=== PATIENT | male | born 1965 | race Caucasian/White ===

== ENCOUNTER 2021-12-26 19:30 | Emergency (ER) | payer SELFPAY ==
[~2021-12-26] VITALS: Ht 182.9 cm; Wt 77.2 kg
--- NOTE | 2021-12-26 20:13 | ED.ADGEN ---
General Adult EDM: Chief Complaint: SUICDAL IDEATION HPI: HPI: Patient is a 56 year old male coming in for suicidal ideation. Patient states that he wanted to cut his knife with a machete but it was taken away by the po lice. History provided by patient is very disorganized. Patient does state he has a history of schizophrenia but has not been taking medications. Patient is currently traveling to or from [place] but is unclear. Patient does admit to doing drugs yesterday. Patient patient had some "bad dope" and was told that it was going to kill him Review of Systems: Review of Systems: All other systems within normal limits except for as noted in the HPI Current Medications: Current Medications Medications (Trade) Dose Ordered Sig/Js Start Time Stop Time Status Last Admin Dose Admin Diphenhydramine HCl (Benadryl) 25 mg 1X ONCE 12/26/21 20:30 12/26/21 20:42 DC 12/26/21 20:30 25 MG Haloperidol Lactate (Haldol Inj) 5 mg 1X ONCE 12/26/21 20:30 12/26/21 20:42 DC 12/26/21 20:30 5 MG Lorazepam (Ativan Inj) 2 mg 1X ONCE 12/26/21 23:00 12/26/21 23:01 DC Sodium Chloride 1,000 ml @ 1,000 mls/hr 1X ONCE 12/27/21 03:30 12/27/21 04:29 DC 12/27/21 03:30 1,000 MLS/HR Allergies: Allergies: Allergies Coded Allergies Type Severity Reaction Last Updated Verified No Known Drug Allergies 12/26/21 No Physical Exam: PE: Constitutional: Well developed, well nourished, no acute distress, non-toxic appearance. [] HENT: Normocephalic, atraumatic, bilateral external ears normal, nose normal. [] Eyes: PERRLA, conjunctiva normal, no discharge. [] Neck: No rigidity, supple, no stridor. [] Cardiovascular: Regular rate and rhythm, brisk cap refill [] Lungs & Thorax: Non labored symmetric respirations, no tachypnea or respiratory distress [] Abdomen: Soft, nondistended. Skin: Warm, dry, no erythema, no rash. [] Back: Unremarkable Extremities: No deformities, range of motion grossly intact, no lower extremity edema [] Neurologic: Alert and oriented X 3, no focal deficits noted. [] Psychologic: Disorganized thinking and speech, suicidal ideations Current Patient Data: Labs: Laboratory Tests Test 12/26/21 20:14 12/26/21 23:40 12/27/21 05:00 12/27/21 12:05 White Blood Count 10.3 x10^3/uL (4.0-11.0) Red Blood Count 4.16 x10^6/uL (4.30-5.70) L Hemoglobin 12.4 g/dL (13.0-17.5) L Hematocrit 36.9 % (39.0-53.0) L Mean Corpuscular Volume 89 fL (79-100) Mean Corpuscular Hemoglobin 30 pg (25-35) Mean Corpuscular Hemoglobin Concent 34 g/dL (31-37) Red Cell Distribution Width 13.4 % (11.5-14.5) Platelet Count 247 x10^3/uL (140-400) Neutrophils (%) (Auto) 80 % (31-73) H Lymphocytes (%) (Auto) 14 % (24-48) L Monocytes (%) (Auto) 6 % (0-9) Eosinophils (%) (Auto) 0 % (0-3) Basophils (%) (Auto) 1 % (0-3) Neutrophils # (Auto) 8.2 x10^3/uL (1.8-7.7) H Lymphocytes # (Auto) 1.4 x10^3/uL (1.0-4.8) Monocytes # (Auto) 0.6 x10^3/uL (0.0-1.1) Eosinophils # (Auto) 0.0 x10^3/uL (0.0-0.7) Basophils # (Auto) 0.1 x10^3/uL (0.0-0.2) Sodium Level 138 mmol/L (136-145) Potassium Level 3.7 mmol/L (3.5-5.1) Chloride Level 102 mmol/L (98-107) Carbon Dioxide Level 24 mmol/L (21-32) Anion Gap 12 (6-14) Blood Urea Nitrogen 19 mg/dL (8-26) Creatinine 0.9 mg/dL (0.7-1.3) Estimated GFR (Cockcroft-Gault) 86.7 BUN/Creatinine Ratio 21 (6-20) H Glucose Level 91 mg/dL (70-99) Calcium Level 8.7 mg/dL (8.5-10.1) Phosphorus Level 3.6 mg/dL (2.6-4.7) Magnesium Level 2.1 mg/dL (1.8-2.4) Total Bilirubin 1.0 mg/dL (0.2-1.0) Aspartate Amino Transferase (AST) 43 U/L (15-37) H Alanine Aminotransferase (ALT) 43 U/L (16-63) Alkaline Phosphatase 82 U/L (46-116) Total Protein 7.4 g/dL (6.4-8.2) Albumin 3.9 g/dL (3.4-5.0) Albumin/Globulin Ratio 1.1 (1.0-1.7) Salicylates Level 2.3 mg/dL (2.8-20.0) L Salicylate Last Dose Date Salicylate Last Dose Time Acetaminophen Level < 2 mcg/ml (10-30) L Acetaminophen Last Dose Date Acetaminophen Last Dose Time Ethyl Alcohol Level < 10 mg/dL (0-10) SARS-CoV-2 (PCR) Not detected (NOT DETECTD) Not detected (NOT DETECTD) Influenza Type A Antigen Negative (NEGATIVE) Influenza Type B Antigen Negative (NEGATIVE) SARS-CoV-2 Antigen (Rapid) Negative (NEGATIVE) Urine Collection Type Unknown Urine Color [place] Urine Clarity Clear Urine pH 6.0 (<5.0-8.0) Urine Specific [place] 1.025 (1.000-1.030) Urine Protein Negative mg/dL (NEG-TRACE) Urine Glucose (UA) Negative mg/dL (NEG) Urine Ketones (Stick) 40 mg/dL (NEG) Urine Blood Negative (NEG) Urine Nitrite Negative (NEG) Urine Bilirubin Small (NEG) Urine Urobilinogen Dipstick 1.0 mg/dL (0.2 mg/dL) Urine Leukocyte Esterase Negative (NEG) Urine RBC 0 /HPF (0-2) Urine WBC Rare /HPF (0-4) Urine Squamous Epithelial Cells Few /LPF Urine Bacteria 0 /HPF (0-FEW) Urine Hyaline Casts Occasional /HPF Urine Mucus Marked /LPF Urine Opiates Screen Neg (NEG) Urine Methadone Screen Neg (NEG) Urine Barbiturates Neg (NEG) Urine Phencyclidine Screen Neg (NEG) Urine Amphetamine/Methamphetamine Pos (NEG) Urine Benzodiazepines Screen Neg (NEG) Urine Cocaine Screen Neg (NEG) Urine Cannabinoids Screen Pos (NEG) Urine Ethyl Alcohol Neg (NEG) Laboratory Tests 12/26/21 20:14 Laboratory Tests 12/26/21 20:14 Vital Signs: Vital Signs Date Time Temp Pulse Resp B/P (MAP) Pulse Ox O2 Delivery O2 Flow Rate FiO2 12/28/21 06:23 97.7 60 14 120/55 (76) 99 Room Air 97.7 EKG: EKG: [] Heart Score: C/O Chest Pain: No Risk Factors: Risk Factors: DM, Current or recent (<one month) smoker, HTN, HLP, family history of CAD, obesity. Risk Scores: Score 0 - 3: 2.5% MACE over next 6 weeks - Discharge Home Score 4 - 6: 20.3% MACE over next 6 weeks - Admit for Clinical Observation Score 7 - 10: 72.7% MACE over next 6 weeks - Early Invasive Strategies Radiology/Procedures: Radiology/Procedures: [] Course & Med Decision Making: Course & Med Decision Making Patient pending PAT reevaluation at shift change. accepted patient care again at shift change, deemed appropriate for RSI... pending negative covid pcr result Patient is medically cleared to be transferred for inpatient psychiatric treatment. 0400 12/28 patient accepted to [facility]. Pending transfer by [facility] at 1230 12/28 Pending transport to [facility] at shift change This patient was transported to [facility], without incident. Please see previous physician note for details. The patient not require any intervention by me during the brief time I assumed care. Atif Disclaimer: Atif Disclaimer: This electronic medical record was generated, in whole or in part, using a voice recognition dictation system. Departure Departure Impression: Primary Impression: Suicidal ideations Additional Impression: Psychosis Disposition: 01 HOME / SELF CARE / HOMELESS Condition: STABLE Patient Instructions: Suicidal Feelings, How to Help Yourself Problem Qualifiers KARLEE GARCIA MD Dec 26, 2021 20:13 RUTH RASHID DO Dec 29, 2021 08:37
[2021-12-26] MEDS ORDERED: diphenhydrAMINE 50 MG/ML VIAL ONE (20:17)
[2021-12-26] MEDS ORDERED: HALOPERIDOL LACTATE 5 MG/ML VIAL. ONE (20:17)
[2021-12-26 20:20] LABS: BASO # 0.1 x10^3/uL (0.0-0.2); BASO % 1 % (0-3); EOS % 0 % (0-3); HEMATOCRIT 36.9 % (39.0-53.0); HEMOGLOBIN 12.4 g/dL (13.0-17.5); LYMPH # 1.4 x10^3/uL (1.0-4.8); LYMPH % 14 % (24-48); MEAN CORPUSCULAR HEMOGLOBIN 30 pg (25-35); MEAN CORPUSCULAR HGB CONC 34 g/dL (31-37); MEAN CORPUSCULAR VOLUME 89 fL (79-100); MONO # 0.6 x10^3/uL (0.0-1.1); MONO % 6 % (0-9); NEUT # 8.2 x10^3/uL (1.8-7.7); NEUT % 80 % (31-73); PLATELET COUNT 247 x10^3/uL (140-400); RED BLOOD COUNT 4.16 x10^6/uL (4.30-5.70); RED CELL DISTRIBUTION WIDTH 13.4 % (11.5-14.5); WHITE BLOOD COUNT 10.3 x10^3/uL (4.0-11.0)
[2021-12-26 20:29] LABS: CALCIUM 8.7 mg/dL (8.5-10.1); CREATININE 0.9 mg/dL (0.7-1.3); GFR 86.7; POTASSIUM 3.7 mmol/L (3.5-5.1)
[2021-12-26] MEDS ORDERED: HALOPERIDOL LACTATE 5 MG/ML VIAL. IVP ONE (20:30)
[2021-12-26] MEDS ORDERED: diphenhydrAMINE 50 MG/ML VIAL IVP ONE (20:30)
[2021-12-26 20:33] LABS: ACETAMIN < 2 mcg/ml (10-30); ETHANOL < 10 mg/dL (0-10); SALIC 2.3 mg/dL (2.8-20.0)
[2021-12-26 20:34] LABS: ALBUMIN 3.9 g/dL (3.4-5.0); ALBUMIN/GLOBULIN RATIO 1.1 (1.0-1.7); MAGNESIUM 2.1 mg/dL (1.8-2.4); PHOSPHORUS 3.6 mg/dL (2.6-4.7); TOTAL PROTEIN 7.4 g/dL (6.4-8.2)
[2021-12-27 00:02] LABS: INFLUENZA A PATIENT NEGATIVE (NEGATIVE); INFLUENZA B PATIENT NEGATIVE (NEGATIVE)
[2021-12-27] MEDS ORDERED: IV NORMAL SALINE 1000ML BAG 1,000 ML IV ONE ×2 (00:15→03:30)
[2021-12-27 05:06] LABS: BILIRUBIN,URINE SMALL (NEG); CLARITY,URINE CLEAR; COLOR,URINE AMBER; NITRITE,URINE NEGATIVE (NEG); PROTEIN,URINE NEGATIVE (NEG-TRACE)
[2021-12-27 05:12] LABS: BARBITURATES NEG (NEG); BENZODIAZEPINES NEG (NEG); CANNABINOIDS POS (NEG); COCAINE NEG (NEG); METHADONE NEG (NEG); OPIATES NEG (NEG); PHENCYCLIDINE NEG (NEG)
[2021-12-27 05:14] LABS: AMPHETAMINE/METHAMPHETAMINE POS (NEG)
[2021-12-27 05:24] LABS: BACTERIA,URINE 0 /HPF (0-FEW); HYALINE CASTS, URINE OCCASIONAL /HPF; RBC,URINE 0 /HPF (0-2); WBC,URINE RARE /HPF (0-4)
--- NOTE | 2021-12-28 03:50 | EKG ---
[facility] [address] [place] [address] Test Date: 2021-12-27 Test Time: 12:17:52 Pat Name: RHONDA GUTIERREZ Department: Room: Gender: [employer] Chief Inspector: : [id number] Requested By: MASHA GODOY Order Number: [id number] Reading MD: Christian Vegas Measurements Intervals [place] Rate: 64 P: 75 [place]: 140 QRS: 97 QRSD: 92 T: 80 QT: 452 QTc: 471 Interpretive Statements SINUS RHYTHM Electronically Signed On 12-28-2021 20:01:29 TELEPHONE EXCHANGE OPERATOR by Christian Vegas
[2021-12-28 06:23] VITALS: BP 120/55
== END 2021-12-28 07:06 | disposition home or self-care (01) ==
LOC: ER 19:30
DX: R45.851 Suicidal ideations (principal); F29 Unspecified psychosis not due to a substance or known physiological condition; F20.9 Schizophrenia, unspecified; Z20.822 Contact with and (suspected) exposure to COVID-19
CPT/HCPCS: 80053; 80307; 80329; 81001; 83735; 84100; 85025; 87428; 93005; 96361; 96374; 96375; 99285; C9803; G0480; J1200; J1630; J7030; U0003; J2060